=== PATIENT | male | born 1955 | race Asian ===

== ENCOUNTER 2023-10-09 05:50 | Emergency (ER) | payer MEDICARE, OTHER ==
[~2023-10-09] VITALS: Ht 162.6 cm; Wt 66.0 kg
[2023-10-09] MEDS ORDERED: TAMS0.4C94 PO (06:08)
[2023-10-09] MEDS ORDERED: FAMO20 PO (06:08)
[2023-10-09] MEDS ORDERED: FEXO-353 PO (06:08)
[2023-10-09] MEDS ORDERED: ATOR10TA PO (06:08)
[2023-10-09] MEDS ORDERED: PANT-31 PO (06:08)
[2023-10-09 06:09] VITALS: TEMP 97.8
[2023-10-09] MEDS: ACETAMINOPHEN 500 MG TABLET PO ONE (06:44)
[2023-10-09] MEDS: BACITRACIN 0.9 GM PACKET OINTMENT TP ONE (06:44)
[2023-10-09 12:00] VITALS: PULSE 90; RESP 20; O2SAT 99
[2023-10-09 13:15] VITALS: BP 145/82; PULSE 90; RESP 16
[2023-10-09] MEDS ORDERED: ACET-3385 PO (13:28)
== END 2023-10-09 13:40 | disposition home or self-care (01) ==
LOC: EMS 05:51
DX: S20.212A Contusion of left front wall of thorax, initial encounter (principal); S60.412A Abrasion of right middle finger, initial encounter; E78.00 Pure hypercholesterolemia, unspecified; Z98.890 Other specified postprocedural states; V89.2XXA Person injured in unspecified motor-vehicle accident, traffic, initial encounter; Y93.89 Activity, other specified; Y92.89 Other specified places as the place of occurrence of the external cause; Y99.8 Other external cause status
CPT/HCPCS: 99285; 70450; 94640; 71250; 72125; 72128; G0238